=== PATIENT | female | born 1980 | race Caucasian/White ===

== ENCOUNTER 2016-06-30 17:07 | Day surgery (SDC) | payer BC ==
[~2016-06-30] VITALS: Ht 152.4 cm; Wt 99.7 kg
[2016-06-30] VITALS (20 sets, daily range): BP systolic 115–161; BP diastolic 70–107; PULSE 76–96; RESP 12–20; TEMP 97.7–98.6; O2SAT 93–99; Ht 152.4 cm; Wt 99.7 kg
--- OUTSIDE RECORDS SUMMARY | 2016-06-30 17:13 | XMS REPORT ---
Author Author Anju [facility] Address [address] [place], [place] [id number] Care Team Providers Care Dry Molder Name Role Phone Anju Dillard Unavailable [phone] PROBLEMS Type Condition ICD9-CM Code PLE06-EQ Code Onset Dates Condition Status SNOMED Code Problem Obesity, morbid, BMI 40.0-49.9 E66.01 Active 793434153 Assessment Encounter for routine gynecological examination Z01.419 May Active 411145278134720 Assessment Papanicolaou smear for cervical cancer screening Z12.4 May Active [id number] Assessment Screening for HPV (human papillomavirus) Z11.51 May, Active [id number] ALLERGIES Substance Reaction Event Type Date Status N.K.D.A. Unknown Non Drug Allergy May, Unknown SOCIAL HISTORY No smoking Hx information available PLAN OF CARE Activity Details Pending Test PAP (Liquid Base Pap) (Use Z12.4) Pending Test HPV High Risk Thin Prep (Use Z11.51) 1 Year,Reason: VITAL SIGNS Height 60 in 2016-06-15 Weight 222.0 lbs 2016-06-15 BMI 43.35 kg/m2 2016-06-15 Temperature 97.7 degrees Fahrenheit 2016-06-15 Heart Rate 84 /min 2016-06-15 Respiratory Rate 18 /min 2016-06-15 Blood pressure systolic 122 mm Hg 2016-06-15 Blood pressure diastolic 78 mm Hg 2016-06-15 MEDICATIONS No Known Medications RESULTS No Results PROCEDURES Procedure Date Ordered Related Diagnosis Body Site NEW PREV AGE 18-39 June 15, 2016 IMMUNIZATIONS No Known Immunizations
--- OUTSIDE RECORDS SUMMARY | 2016-06-30 17:13 | XMS REPORT ---
Author Author GENERATED, SYSTEM Organization Unknown Address Unknown Phone Unavailable Care Team Providers Care Marine Gear Keeper Name Role Phone [facility] Unavailable Reason For Visit Reason for Visit from 06/26/2016 6:11 PM:* Pt Stated Reason for Adm : Gallstones Chief Complaint GALLSTONE, WITH ACUTE CHOLECYSTITIS Social History Social History from 06/28/2016 10:02 AM:* Tobacco Use? : Former Smoker Social History from 06/26/2016 6:11 PM:* Tobacco Use? : Former Smoker Functional Status Functional Status from 06/28/2016 8:00 AM:* LOC : Alert * Oriented To : Person,Place,Time,Event * Weight Bearing Status : Full * Assist Level : Independent * # Assists : Independent Functional Status from 06/27/2016 8:20 PM:* Weight Bearing Status : Full * Assist Level : Independent * # Assists : Independent Functional Status from 06/27/2016 6:34 PM:* # Assists : 1 Functional Status from 06/27/2016 2:15 PM:* # Assists : 1 Functional Status from 06/27/2016 2:14 PM:* # Assists : 1 Functional Status from 06/27/2016 9:52 AM:* LOC : Alert * Oriented To : Person,Place,Time,Event * Weight Bearing Status : Full * Assist Level : Independent * # Assists : Independent Functional Status from 06/27/2016 9:14 AM:* LOC : Alert Functional Status from 06/27/2016 8:36 AM:* LOC : Drowsy Functional Status from 06/26/2016 8:13 PM:* LOC : Alert * Oriented To : Person,Place,Time,Event * Weight Bearing Status : Full * Assist Level : Independent * # Assists : 1 Functional Status from 06/26/2016 6:11 PM:* Weight Bearing Status : Full * Assist Level : Independent * # Assists : 1 Vital Signs Hospital Vital Signs from 06/28/2016 9:39 AM:* Height : 5/0 ft,in Hospital Vital Signs from 06/28/2016 7:34 AM:* Height : 5/0 ft,in * Temperature : 96.8 F * Pulse : 74 * Respirations : 18 * BP : 113/65 Hospital Vital Signs from 06/28/2016 3:35 AM:* Height : 5/0 ft,in * Temperature : 97.1 F * Pulse : 75 * Respirations : 18 * BP : 113/63 Hospital Vital Signs from 06/27/2016 10:00 PM:* Height : 5/0 ft,in * Temperature : 97.4 F * Pulse : 84 * Respirations : 18 * BP : 114/72 Hospital Vital Signs from 06/27/2016 6:49 PM:* Height : 5/0 ft,in * Temperature : 98.5 F * Pulse : 87 * Respirations : 16 * BP : 122/75 Hospital Vital Signs from 06/27/2016 1:15 PM:* Height : 5/0 ft,in * Temperature : 97.9 F * Pulse : 113 * Respirations : 16 * BP : 128/76 Hospital Vital Signs from 06/27/2016 12:34 PM:* Height : 5/0 ft,in * Temperature : 97.0 F * Pulse : 104 * Respirations : 16 * BP : 125/76 Hospital Vital Signs from 06/27/2016 11:15 AM:* Height : 5/0 ft,in * Temperature : 97.5 F * Pulse : 105 * Respirations : 18 * BP : 97/55 Hospital Vital Signs from 06/27/2016 10:45 AM:* Height : 5/0 ft,in * Pulse : 92 * Respirations : 18 * BP : 108/59 Hospital Vital Signs from 06/27/2016 10:20 AM:* Height : 5/0 ft,in * Pulse : 87 * Respirations : 16 * BP : 111/57 Hospital Vital Signs from 06/27/2016 10:00 AM:* Height : 5/0 ft,in * Pulse : 92 * Respirations : 16 * BP : 114/57 Hospital Vital Signs from 06/27/2016 9:45 AM:* Height : 5/0 ft,in * Pulse : 95 * Respirations : 16 * BP : 118/59 Hospital Vital Signs from 06/27/2016 9:30 AM:* Height : 5/0 ft,in * Temperature : 99.6 F * Pulse : 82 * Respirations : 14 * BP : 112/60 Hospital Vital Signs from 06/27/2016 9:10 AM:* Heart Rate : 79 * Resp Rate : 14 * Systolic BP (mmHg) : 115 * Diastolic BP (mmHg) : 60 * Mean BP (mmHg) : 83 * O2 Saturation (%) : 97 Hospital Vital Signs from 06/27/2016 9:05 AM:* Temp : 98.6 * Heart Rate : 83 * Resp Rate : 14 * Systolic BP (mmHg) : 119 * Diastolic BP (mmHg) : 64 * Mean BP (mmHg) : 83 * O2 Saturation (%) : 96 Hospital Vital Signs from 06/27/2016 9:00 AM:* Heart Rate : 98 * Resp Rate : 14 * Systolic BP (mmHg) : 114 * Diastolic BP (mmHg) : 71 * Mean BP (mmHg) : 82 * O2 Saturation (%) : 92 Hospital Vital Signs from 06/27/2016 8:55 AM:* Heart Rate : 101 * Resp Rate : 16 * Systolic BP (mmHg) : 109 * Diastolic BP (mmHg) : 68 * Mean BP (mmHg) : 85 * O2 Saturation (%) : 94 Hospital Vital Signs from 06/27/2016 8:50 AM:* Temp : 98.6 * Heart Rate : 98 * Resp Rate : 14 * Systolic BP (mmHg) : 117 * Diastolic BP (mmHg) : 78 * Mean BP (mmHg) : 90 * O2 Saturation (%) : 99 Hospital Vital Signs from 06/27/2016 8:45 AM:* Heart Rate : 101 * Resp Rate : 13 * Systolic BP (mmHg) : 107 * Diastolic BP (mmHg) : 68 * Mean BP (mmHg) : 79 * O2 Saturation (%) : 98 Hospital Vital Signs from 06/27/2016 8:40 AM:* Heart Rate : 96 * Resp Rate : 13 * Systolic BP (mmHg) : 103 * Diastolic BP (mmHg) : 64 * Mean BP (mmHg) : 74 * O2 Saturation (%) : 99 Hospital Vital Signs from 06/27/2016 8:36 AM:* Temp : 98.8 * Heart Rate : 69 * Resp Rate : 12 * Systolic BP (mmHg) : 110 * Diastolic BP (mmHg) : 82 * Mean BP (mmHg) : 89 * O2 Saturation (%) : 99 Hospital Vital Signs from 06/27/2016 7:00 AM:* Height : 5/0 ft,in * Temperature : 97.9 F * Pulse : 100 * Respirations : 18 * BP : 142/92 Hospital Vital Signs from 06/27/2016 6:38 AM:* Height : 5/0 ft,in * Temperature : 98.6 F * Pulse : 117 * Respirations : 18 * BP : 146/83 Hospital Vital Signs from 06/27/2016 2:47 AM:* Height : 5/0 ft,in * Temperature : 98.4 F * Pulse : 99 * Respirations : 18 * BP : 156/97 Hospital Vital Signs from 06/26/2016 10:48 PM:* Height : 5/0 ft,in * Temperature : 98.9 F * Pulse : 102 * Respirations : 18 * BP : 133/81 Hospital Vital Signs from 06/26/2016 6:42 PM:* Height : 5/0 ft,in * Temperature : 98.3 F * Pulse : 90 * Respirations : 16 * BP : 161/101 Hospital Vital Signs from 06/26/2016 6:11 PM:* Weight : 101.4/ kg * Height : 5/0 ft,in Results Chemistry from 06/27/2016 4:55 AMSODIUM 140 MMOL/L (136-145 MMOL/L) POTASSIUM 4.0 MMOL/L (3.5-5.1 MMOL/L) CHLORIDE 104 MMOL/L (98-107 MMOL/L) TCO2 26.7 MMOL/L (21.0-32.0 MMOL/L) *ANION GAP 9.3 MMOL/L (8.0-16.0 MMOL/L) BUN 7 MG/DL (7-18 MG/DL) CREATININE 0.96 MG/DL (0.55-1.02 MG/DL) *BUN/CREATININE RATIO 7.3 L (9.1-17.0 ) GLUCOSE 163 MG/DL H (65-99 MG/DL) *GFR EST NON AFR EGYPTIAN 77 ML/MIN (Reference Range: not available) *GFR EST AFR AMER 89 ML/MIN (Reference Range: not available) CALCIUM 8.4 MG/DL L (8.5-10.1 MG/DL) BILIRUBIN TOTAL 0.30 MG/DL (0.20-1.00 MG/DL) TOTAL PROTEIN 7.0 GM/DL (6.4-8.2 GM/DL) ALBUMIN 3.1 GM/DL L (3.4-5.0 GM/DL) *GLOBULIN 3.9 GM/DL H (2.3-3.5 GM/DL) *A/G RATIO 0.8 MG/DL L (1.5-2.2 MG/DL) ALK PHOS 80 U/L (46-116 U/L) ALT (SGPT) 21 U/L (16-63 U/L) AST (SGOT) 13 U/L L (15-37 U/L) Hematology from 06/27/2016 4:55 AMWBC 19.0 X10e3/UL H (3.6-11.2 X10e3/UL) RBC 4.44 X10e6/UL (3.63-4.92 X10e6/UL) HEMOGLOBIN 12.9 G/DL (11.0-14.3 G/DL) HEMATOCRIT 37.9 % (31.2-41.9 %) *MCV 85.4 FL (79.0-98.0 FL) *MCH 29.0 PG (27.0-33.0 PG) *MCHC 34.0 G/DL (32.0-36.0 G/DL) *RDW 13.5 % (12.3-17.0 %) *RDWSD 41.1 (37.1-47.8 ) PLATELET 323 X10e3/UL (159-386 X10e3/UL) *MPV 8.5 FL (7.4-10.4 FL) Pathology from 06/27/2016 12:00 AM*PATH (Reference Range: not available) SOURCE GALLBLADDER-ROUTINE FINAL DIAGNOSIS GALLBLADDER, CHOLECYSTECTOMY: CHOLELITHIASIS. (HERRERA) SIGNATURE VANESSA HERNDON M.D. , PATHOLOGIST (CASE SIGNED 06/28/2016 AT 11:03) GROSS EXAMINATION: 1. SUBMITTED IN FORMALIN LABELED "GALLBLADDER" IS A GALLBLADDER MEASURING 8 X 4 CM. THE WALL AVERAGES 0.5 CM IN THICKNESS. THE MUCOSA IS DARK GREEN. THE LUMEN CONTAINS MULTIPLE STONES RANGING FROM 0.2 TO 0.6 CM IN DIAMETER. ASSISTANCE SPECIALIST SECTIONS ARE SUBMITTED. (RD/HERRERA) MICROSCOPIC EXAMINATION: SECTIONS SHOW GALLBLADDER WALL WITHOUT SIGNIFICANTLY INCREASED INFLAMMATION. THERE IS NO EVIDENCE OF DYSPLASIA OR MALIGNANCY. PHYSICIANS SERVANDO GUILLERMO// CHARGE CODE CPT COUNT [id number] 1 DX Radiology from 06/27/2016 4:40 AMCHEST 1 VIEW History: Pre Operative Priors: None. Findings: The heart size and pulmonary vasculature are within normal limits. No consolidating infiltrate, significant pleural effusion or pneumothorax is seen. There is mild linear left lower lobe atelectasis. Impression: Mild linear left lower lobe atelectasis. Electronically signed by: Jigna Starks MD Dictated: 06/27/2016 07:59 (Reference Range: not available) Problems Encounter Diagnosis * Acute Pain Status:Active. * Cholecystitis Status:Active. * Infection Risk Status:Active. Encounters Encounter Diagnosis * Acute Pain Status:Active. * Cholecystitis Status:Active. * Infection Risk Status:Active. Plan of Care Follow-up Appointments from 06/28/2016 10:02 AM:* #1 Office appointment: : Dr. Guillermo * #1 Date/Time : 07/13/2016 10:15 AM * Address # 1 : [facility]: [facility] [place], [place]- or Treatment Plan from 06/28/2016 8:23 AM:* Care Management Note : BODY,TD,TH,BUTTON ,INPUT,SELECT,TEXTAREA{FONT-SIZE: 10pt; FONT-FAMILY: [place],Helvetica; COLOR: black;} P,DIV,UL,OL,BLOCKQUOTE{MARGIN-BOTTOM: 0px; MARGIN-TOP: 0px;} BODY{MARGIN : 5px;} Admission status: Outpatient Insurance: [employer], out of state Patient presented to ER for complaints of abdominal pain. Patient to OR for Laparoscopic cholecystectomy due to Cholelithiasis with cholecystitis. Confirmed with imaging. WBC 19.0. Patient was then kept overnight for monitoring : IVF, pain management, Ambulation, diet advancement, and vital signs monitoring. Patient is anticipated to go home today. meets outpatient status at this time. Procedures * Completed Laparoscopic cholecystectomy , by MD SERVANDO GUILLERMO, on 06/27/2016 7: 33 AM Immunizations No immunizations administered or ordered. Hospital Course Hospital Discharge Instructions How to care for yourself at home from 06/28/2016 10:02 AM:* Discharge Activity : Activity as tolerated,Do not engage in sports, heavy work or heavy lifting until your physician gives permission,No Tub Bath * Discharge Diet : Diet as tolerated * Discharge Wound Care : Keep dressings dry,Notify your physician if the following develops: redness, swelling, drainage or color of drainage changes, odor or increased pain. * Remove dressing in: : 06/29/16 * Call your doctor if: : Fever over 101 F or severe chills,Chest pain or other unexplained symptoms,Tingling or numbness develops,A sudden increase or decrease in weight,You have persistent or worsening symptoms,If you have Heart Failure and you gain 3 pounds within 1 week or your symptoms worsen. (Weigh at home tomorrow morning) * Specific Discharge Teaching Instructions provided: : No * Discharge on Warfarin : No Allergies, Adverse Reactions, Alerts This section is high school admissions representative of the current allergy information, at the time of the CCD generation. In the case of regeneration of the CCD, the allergy information may not reflect the state of known allergies at the time of the CCD' s subject visit. * No Latex Allergy. * No IV Contrast Allergy. * No Known Drug Allergies. * No Known Food Allergies. Medication It is the responsibility of the patient or patient high school admissions representative to confirm the list of medications with either the patient's personal care provider or the patient's follow-up care provider to ensure the patient has an appropriate list of medications to take at home. Discharge medications New medications* HYDROcodone-acetaminophen 5 mg-325 mg Tablet, Ordered By: SHANA IRELAND RN Directions: 1 or 2 tabs oral every four hours PRN pain Additional Instructions: PRN PAIN * ciprofloxacin HCl (Cipro) 500 mg Tablet, Ordered By: SHANA IRELAND RN Directions: 1 tablet oral twice a day Stopped medications* None
[2016-06-30] MEDS ORDERED: CIPR-212 PO (17:25)
[2016-06-30] MEDS ORDERED: HYDR-4246 PO (17:25)
[2016-06-30] MEDS ORDERED: NORMAL SALINE 1,000 ML IV ONE (17:32)
[2016-06-30] MEDS ORDERED: LIDOCAINE 1% (10mg/ml) 2ml SDV INJ ONE (17:45)
[2016-06-30] MEDS ORDERED: IOHEXOL 300 MG/ML 50ml INJECTION ONE (18:00)
[2016-06-30] MEDS ORDERED: GENTAMICIN 80 MG/2 ML INJECTION ONE (18:00)
[2016-06-30] MEDS ORDERED: MIDAZOLAM 2mg/2ml INJECTION ONE (18:10)
[2016-06-30] MEDS ORDERED: PROPOFOL 500mg 50 ML IV ONE (18:10)
[2016-06-30] MEDS ORDERED: FENTANYL 100mcg/2ml INJECTION ONE ×2 (18:10→18:24)
[2016-06-30] MEDS ORDERED: KETAMINE 500mg/10ml INJECTION ONE (18:10)
[2016-06-30] MEDS ORDERED: LIDOCAINE 2% (20mg/ml) 5ml PF SDV ONE (18:10)
--- NOTE | 2016-06-30 18:32 | ANESPREOP ---
Anesthesia Record Date and Time DATE: 06/30/16 TIME: 18:29 Pre-Op Diagnosis kidney stone Proposed Surgical Procedure cysto, pyelogram, possible stent placement NPO since: 0600 Allergies: Coded Allergies: No Known Drug Allergies (Verified Allergy, Unknown, 06/30/16) Ht/Wt/BMI Height: 5 ' 0.00 " Weight: 99.700 kg BMI: 42.9 kg/m2 Vital Signs Date Time Temp Pulse Resp B/P Pulse Ox O2 Delivery O2 Flow Rate FiO2 06/30/16 17:53 137/78 06/30/16 17:19 98.6 88 18 99 Room Air Medications Ciprofloxacin HCl (Cipro) 500 Mg Tablet, 500 MG PO Q12HR, (Reported) Last Taken: on 06/30/16 0600 Hydrocodone/Acetaminophen ([place] 5-325 Tablet) 5-325 Tablet, 1-2 TAB PO Q4HPRN, (Reported) Last Taken: on 06/30/16 0600 Currently on Beta Jose: No Medical/Surgical History Anesthesia PMH: Reports: Obesity (morbid), Denies: *Diabetes, Anesthesia Reactions (N/V), Arthritis, Cancer, Clotting Problems, Malignant Hyperthermia, Sleep Apnea, Thyroid Disease Has pt. smoked today?: No Use Chewing Tobacco?: No Second Hand Exposure: No Substance Use Type: does not use Alcohol Intake: none Past Surgical History Orthopedic Surgeries: Abdominal Surgeries: Yes - jc Genitourinary Surgeries: No Cardiac Surgeries: No Endocrine Surgeries: No Reproductive Surgeries: Yes - 3 csections Neurological Surgeries: No Ear Surgeries: No Nose Surgeries: No Throat Surgeries: No Other Surgeries: No Anesthesia Adverse Reactions: FOUND none Family Hx of Anesthesia Advers: none Pertinent Findings Test 06/30/16 17:44 Urine Test Negative (NEGATIVE) EKG Rhythm: Sinus Rhythm Physical Exam Respiratory: Bilat breath sounds equal, Lungs clear Cardiovascular: FOUND Regular rate, rhythm, FOUND No murmur Airway Assessment Mallampati Score: III TMD: 2 Fingerbreadths Neck Extension: Fair Teeth: Other (overbite) Overall Assessment: May Be Diff Intubation ASA: 3 Plan Anesthesia Plan: TIVA, LMA Discussion Discussed risks/options/alternatives of anesthesia and questions answered. Patient consents. Nursing pain assessment noted. Attestation Statement Prior to the delivery of any anesthetic medication, I examined the patient, developed the plan, obtained the patient's consent and discussed the risk and benefits of the procedure with the patient/guardian. JEANNE SEALS DEMOLITION CRANE OPERATOR Jun 30, 2016 18:32
[2016-06-30] MEDS ORDERED: LEVOFLOXACIN IV ONE (18:45)
[2016-06-30] MEDS ORDERED: D5W IV ONE (18:45)
[2016-06-30] MEDS ORDERED: PROPOFOL 200mg 20 ML IV ONE (18:51)
[2016-06-30] MEDS ORDERED: NORMAL SALINE 1,000 ML IV SCH (19:01)
[2016-06-30] MEDS ORDERED: PHEN95TA25 PO (19:08)
--- NOTE | 2016-06-30 19:09 | ANESPO ---
Post-Op Note Date 06/30/16 Time: 19:07 Status Pt Participated in Evaluation: Pt participated in person Vital Signs Date Time Temp Pulse Resp B/P Pulse Ox O2 Delivery O2 Flow Rate FiO2 06/30/16 17:53 137/78 06/30/16 17:19 98.6 88 18 99 Room Air Respiratory Function: Airway patent Cardiovascular Function: Regular pulse Mental Status: Alert/oriented Pain Level Intensity: 5 Hydration: IV infusing Complications during Recovery None apparent Follow-Up Instructions Instructions Per Surgeon JEANNE SEALS CRNA Jun 30, 2016 19:09
[2016-06-30] MEDS ORDERED: HYDROMORPHONE 2mg/ml INJECTION IV PRN (19:15)
[2016-06-30] MEDS ORDERED: ONDANSETRON 4mg/2ml INJECTION IV PRN ×2 (19:15)
[2016-06-30] MEDS ORDERED: MORPHINE SULFATE 4 MG SYRINGE IV PRN (19:15)
[2016-06-30] MEDS ORDERED: PHENAZOPYRIDINE 95 MG TABLET PO PRN (19:15)
[2016-06-30] MEDS ORDERED: KETOROLAC 30mg/ml INJECTION IV PRN (19:15)
--- NOTE | 2016-06-30 19:36 | NUR ---
ADMISSION PATIENT ARRIVED FORM PACU VIA CART. PATIENT IS A/OX3.PATIENT DENIES ANY PAIN AT THIS TIME .PATIENT C/O NAUSEA ,NO EMESIS AT THIS TIME. IV FLUID IS RUNNING WELL THROUGH IVL AT [facility]. CALL LIGHT WITHIN REACH .BED IN LOW POSITION .CONTINUE TO MONITOR.
[2016-07-01 00:46] VITALS: BP 126/82; PULSE 85; RESP 20; TEMP 98.3; O2SAT 94
--- NOTE | 2016-07-01 04:09 | NUR ---
Chart Check 24 hour chart check completed
--- NOTE | 2016-07-01 04:40 | NUR ---
STATUS PATIENT IS RESTING QUIETLY IN BED AT THIS TIME.PATIENT C/O PAIN AT LT FLANK.PATIENT RATED 6/10. PRN DILAUDID WAS ADMINISTRATED. PATIENT C/O NAUSEA. PRN ZOFRAN WAS GIVEN. ADEQUATE URINARY OUTPUT . PATIENT C/O BURNING DURING URINATE.PATIENT DRINK WATER AND APPLE JUICE. SHE HAD BEEN EATEN FEW CRACKERS. PATIENT DENIES CHEST PAIN,SOA. PATIENT AMBULATED TO BATHROOM WITH ONE ASSISI.BED ALARM ON.CONTINUE TO MONITOR.
--- NOTE | 2016-07-01 08:12 | NUR ---
Discharge Pt discharged home in good condition. Prior to discharge pt ambulated around surgical unit with and ate a piece of toast. Pt c/o minimal pain (03/30) and denied nausea. Pt reported feeling hungry actually. Discharge instructions were provided and included, but not limited to; follow up appointments, s/s to report, s/s to expect, new medications and side effects of those. Pt ambulated without difficulty to ER exit with all personal belongings, a work release note, and prescription.
--- NOTE | 2016-07-01 09:28 | DI ---
Indication: ITS.REASON: LT KIDNEY STONE ,PUT IN STENT PROCEDURE: RF RETROGRADE PYELOGRAM LEFT: Encounter: Initial Comparison: None Findings: 11 fluoroscopic spot images are submitted for interpretation. Images show a left-sided double-J stent in place. Retrograde injection of contrast into the dilated left renal collecting system with hydroureter proximally. There is a filling defect in the mid to distal ureter and evidence of a narrow stricturing which is seen on two different images. Impression: Fluoroscopy as above. Fluoroscopy time is 204.7 [place] [address] mRad. There is a preliminary report by virtual radiologic. .
--- NOTE | 2016-07-01 23:04 | OPNOTEF ---
DATE OF OPERATION 06/30/2016 PREOPERATIVE DIAGNOSIS Left distal ureteral stone and left hydronephrosis and left renal colic. POSTOPERATIVE DIAGNOSIS Left distal ureteral stone and left hydronephrosis and left renal colic, with left ureteral stricture. OPERATION PERFORMED Cystoscopy with left retrograde pyelogram and ureteroscopy with ureteral stricture dilation and stone manipulation without removing the stone, and insertion of the stent #6 Thai x 22 cm. SURGEON Navi Reyes MD ANESTHESIA TIVA INDICATIONS Patient is a 36-year-old woman in acute left flank pain from the obstructing distal ureterolithiasis confirmed by CT scan with hydronephrosis. She developed pain four days ago and pain has been intermittent with nausea and vomiting but no fever or chills. No gross hematuria or dysuria. She had a cholecystectomy only a week ago. Patient was severely symptomatic, unable to tolerate anything orally enough to hydrate herself. Patient was brought in to have pain control with IV hydration and removal of the stone. DESCRIPTION OF PROCEDURE Patient was taken to the cystoscopy suite and under intravenous anesthesia, patient was placed in the dorsal lithotomy position and prepped and draped in the usual fashion for cystoscopy procedure. Fluoroscopically, a large stone was seen in the left pelvis suspected to be the stone in the ureter. A #22 Thai cystoscope was then inserted into the bladder. Bladder showed trabeculation with small patch of posterior mucosa that was somewhat inflamed. It is suspected that it may be from the catheterization during the cholecystectomy. Ureteral orifices were normal in location and contour bilaterally. Left ureteral orifice was cannulated with #5 Thai open-ended ureteral catheter and a small amount of contrast mixed with gentamicin was injected under fluoroscopy. It showed the distal ureter to be of normal caliber but just at the stone is a very tight waist consistent with a stricture. The stone is freely mobile and as contrast was injected, stone would move proximally. Proximal ureter was markedly dilated all the way to the renal pelvis. At the UPJ, there was a ureteral distortion from the back pressure. Calyceal systems were blunted. This was consistent with hydronephrosis. No other filling defect was seen. A guidewire was inserted under fluoroscopic guidance, passed the stricture and stone into the renal pelvis. Cystoscope was removed and #7 Thai rigid ureteroscope was loaded over the guidewire and placed into the ureter and advanced until a large stone was found but we could not get past the strictured area with the ureteroscope. Therefore, #18 Thai balloon dilator was loaded over the guidewire and the stricture dilated. The entire distal ureter from the stone to the ureteral orifice was dilated under fluoroscopic guidance. We were then able to insert the ureteroscope at this time next to the guidewire and place it into the ureter and advanced until stone was visualized. Stone was then engaged into the #2.5 Thai Graspit basket and attempts were made to retrieve it but the stone was too large to be accompanied by even the dilated ureter. Therefore, guidewire was removed in order to gain some extra room but still the stone was simply too large. Therefore, guidewire was replaced after releasing the stone from the basket and the ureter was further dilated to #21 Thai with the balloon dilator. This was all done under fluoroscopy. Again, the Graspit basket was used to engage the stone under direct vision and attempts were made to retrieve the stone. The stone was still too large to be accommodated by the dilated ureter. Therefore, it was released from the basket and ureteroscope was removed. A cystoscope was back loaded over the guidewire into the bladder and a #6 Thai x 22 cm double pigtail stent was placed into the left renal system under fluoroscopic guidance. Stent position was confirmed fluoroscopically and also cystoscopically. Bladder was emptied out and the cystoscope removed. Patient tolerated the procedure well and was taken to the recovery room in stable condition. SHERRON
== END 2016-07-01 08:08 | disposition home or self-care (01) ==
LOC: SRG 17:07 → SCU 17:07
PROVIDERS: ATTEND Specialist
DX: N13.1 Hydronephrosis with ureteral stricture, not elsewhere classified (principal); N20.1 Calculus of ureter; Z90.49 Acquired absence of other specified parts of digestive tract; Z87.440 Personal history of urinary (tract) infections; Z87.891 Personal history of nicotine dependence
CPT/HCPCS: 52330; 52332; 52344; 74420; 81025; J1170; J1580; J1956; J2250; J2405; J2704; J3010; J7030; Q9967